=== PATIENT | female | born 1955 | race Caucasian/White ===

== ENCOUNTER → 2017-12-12 14:22 | Outpatient (CLI) | payer BC, SELFPAY ==
--- NOTE | 2017-12-12 14:26 | NVE_ITS ---
Venous Exam Indications: 729.5 Pain in limb. IMPRESSIONS 1. There is no evidence of significant Reflux. 2. No evidence of deep or superficial vein thrombosis involving the right lower extremity Right lower extremity venous duplex evaluation. Doppler flow study including spectral analysis, color and sanders scale imaging. Location: Vascular laboratory. Patient status: Outpatient. Tables: Venous flow and imaging: + +-------+ + Location Overall Flow properties + +-------+ + Right common femoral Patent Normal phasicity; spontaneous; normal augmentation; compressible + +-------+ + Right saphenofemoral junction Patent Compressible + +-------+ + Right profunda femoral Patent Compressible + +-------+ + Right femoral Patent Normal phasicity; spontaneous; normal augmentation; compressible + +-------+ + Right greater saphenous Patent Normal phasicity; spontaneous; normal augmentation; compressible + +-------+ + Right popliteal Patent Normal phasicity; spontaneous; normal augmentation; compressible + +-------+ + Right posterior tibial Patent Compressible + +-------+ + Right peroneal Patent Compressible + +-------+ + Right gastrocnemius Patent Compressible + +-------+ + Right soleal Patent Compressible + +-------+ + (Report amended ) Electronically signed by: Que Villela [id number]
--- NOTE | 2017-12-12 14:49 | XR_ITS ---
XR knee RT 3V HISTORY: ITS.REASON: POST ERIOR RT KNEE PAIN ORDERING PHYSICIAN: Lorena Rossi PATIENT AGE: 62 years COMPARISON: None FINDINGS: No fracture or dislocation. No lytic or blastic change. Normal mineralization. No significant arthritic changes evident. There is increased density in the suprapatellar region consistent with knee joint effusion. Minimal osteophyte formation along the medial compartment and patellofemoral joint. 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
== END ==
PROVIDERS: PCP Family Medicine; Visit Provider Nurse Practitioner
DX: M25.561 Pain in right knee (principal); R60.0 Localized edema
CPT/HCPCS: 73562; 93971